=== PATIENT | female | born 1985 | race Caucasian/White ===

== ENCOUNTER 2018-09-12 17:42 | Emergency (ER) | payer OTHER ==
[~2018-09-12] VITALS: Ht 167.6 cm; Wt 56.7 kg
[~2018-09-12 17:42] MED LIST: AMOXIL500 MG PO; ATIVAN0.5 MG PO; ATIVAN1 MG PO; BACTRIM DS 8001 TA1 PO; IBU-8800 MG PO; MEDROL DOSEPAK4 MG PO; MOTRIN800 MG PO; NAPROSYN500 MG PO; NORCO 325 MG-51 TAB PO; SUBOXONE 8 MG-21 TA2 SL; VISTARIL25 M1 PO; VISTARIL50 MG PO; ZOFRAN ODT4 MG PO; ZOFRAN4 MG PO; ZOLOFT100 MG; ZYRTEC10 MG PO
[2018-09-12 18:09] LABS: BILIRUBIN NEGATIVE (NEGATIVE); BLOOD NEGATIVE (NEGATIVE); CLARITY SL CLOUDY (CLEAR); COLOR YELLOW (YELLOW); GLUCOSE NEGATIVE (NEGATIVE); KETONE NEGATIVE (NEGATIVE); LEUKO ESTERASE NEGATIVE (NEGATIVE); NITRITE POSITIVE (NEGATIVE); PH 6.5 (5.0-9.0); SPECIFIC GRAVITY 1.015 (1.005-1.030); UROBILINOGEN 0.2 E.U./dl (0.2-1.0)
[2018-09-12 18:23] LABS: BACTERIA 4+
[2018-09-12] MEDS ORDERED: DIFLUCAN150 MG PO (18:33)
[2018-09-12] MEDS ORDERED: PYRIDIUM200 M1 PO (18:33)
[2018-09-12] MEDS ORDERED: LEVAQUIN250 M1 PO (18:33)
== END 2018-09-12 18:44 | disposition home or self-care (01) ==
LOC: ED 17:42
PROVIDERS: Emergency Medicine
DX: N39.0 Urinary tract infection, site not specified (principal); Z91.030 Bee allergy status; Z79.2 Long term (current) use of antibiotics; Z79.1 Long term (current) use of non-steroidal anti-inflammatories (NSAID); Z79.899 Other long term (current) drug therapy; Z87.442 Personal history of urinary calculi

== ENCOUNTER → 2022-03-19 | Outpatient (CLI) | payer OTHER ==
[~2022-03-19] MED LIST changes: +DIFLUCAN150 MG PO; +LEVAQUIN250 M1 PO; +PYRIDIUM200 M1 PO
== END | disposition home or self-care (01) ==
LOC: RAD 15:23
PROVIDERS: ATTEND Family Medicine
DX: M85.842 Other specified disorders of bone density and structure, left hand (principal); M25.442 Effusion, left hand; M25.742 Osteophyte, left hand